=== PATIENT | male | born 1985 | race American Indian/Alaskan Native ===

== ENCOUNTER 2020-09-10 19:43 | Emergency (ER) | payer OTHER ==
[2020-09-10] MEDS ORDERED: ACETAMINOPHEN 325 MG TAB ONE ×2 (20:07→20:08)
[2020-09-10 23:28] VITALS: BP 175/98
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
[2020-09-11] MEDS ORDERED: IBUPROFEN 600 MG TAB PO ONE (02:06)
[2020-09-11] MEDS ORDERED: ACETAMINOPHEN 500 MG TAB PO ONE (02:06)
== END 2020-09-11 02:25 | disposition home or self-care (01) ==
LOC: ED 19:43
DX: S86.911A Strain of unspecified muscle(s) and tendon(s) at lower leg level, right leg, initial encounter (principal); Z72.89 Other problems related to lifestyle; Z79.899 Other long term (current) drug therapy; V89.2XXA Person injured in unspecified motor-vehicle accident, traffic, initial encounter; Y93.89 Activity, other specified; Y92.488 Other paved roadways as the place of occurrence of the external cause; Y99.8 Other external cause status
CPT/HCPCS: 99283